=== PATIENT | female | born 2000 | race Caucasian/White ===

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

== ENCOUNTER 2019-03-03 14:56 | Outpatient (CLI) | payer OTHER, SELFPAY ==
[~2019-03-03] VITALS: Ht 154.9 cm; Wt 51.3 kg
[~2019-03-03 14:56] MED LIST changes: +BENA25CA4 PO
[2019-03-03 15:21] VITALS: BP 121/63
== END 2019-03-03 19:24 | disposition home or self-care (01) ==
LOC: M LDO 14:56
PROVIDERS: ATTEND Obstetrics & Gynecology
DX: O26.852 Spotting complicating pregnancy, second trimester (principal); Z3A.22 22 weeks gestation of pregnancy
CPT/HCPCS: 36415; 76815; 86850; 86900; 86901; 96372; G0378; G0463; J2790